=== PATIENT | male | born 1995 | race Caucasian/White ===

== ENCOUNTER 2023-05-31 07:33 | Emergency (ER) | payer OTHER, SELFPAY ==
[2023-05-31 07:34] VITALS: BP 117/73; PULSE 96; RESP 14; TEMP 36.2; O2SAT 95; BMI 30.8
--- NOTE | 2023-05-31 07:53 | RAD_ITS ---
STUDY: X-RAY CHEST REASON FOR EXAM: Male, 27 years old. Cough/cp/sob TECHNIQUE: PA and lateral views of the chest. COMPARISON: None. FINDINGS: The lungs are clear and expanded. There is no demonstrated pleural abnormality. Normal size heart. Normal mediastinum and luis alberto. Normal visualized pulmonary arteries. Normal visualized aortic arch and descending thoracic aorta. Normal visualized thoracic spine. Normal visualized ribs, clavicles, and shoulders. There is no demonstrated abnormality of the visualized soft tissue structures of the upper abdomen. RAD/Chest PA and Lateral IMPRESSION: Normal x-ray examination of the chest. Electronically Signed: Efe Xavier MD at 8:24 EDT ,
--- NOTE | 2023-05-31 07:54 | EX.ED.DYSGE1 ---
HPI History of Present Illness Chief Complaint: General Illness Informant: patient Narrative Narrative: Patient has had about 4 days of illness, multiple family members at home all sick for the same period of time. Most of them are coughing more than him, they seem to be getting a little better but no worse. For the last day or 2 he has had some mild chest tightness and shortness of breath. Not sure if it feels like wheezing. Does not have a history of asthma that he knows of. He is not coughing much, it is more malaise, he had some fevers couple nights ago but not today, and a sore throat at the beginning but that is better now. PFSH PFSH Medical History no medical history no medical history Home Medications albuterol sulfate 90 mcg/actuation aerosol inhaler (Ventolin HFA) 1 - 2 puff inhalation Q4H PRN PRN Wheezing ##1 05/31/23 [Rx Last Taken Unknown] Allergy/AdvReac Type Severity Reaction Status Date / Time No Known Allergies Allergy Verified 05/31/23 07:35 Social History Smoking Status: Never smoker ROS [facility] ED Constitutional Constitutional ED: Reports chills, fever(s) and malaise Eyes Eyes: Denies blurry vision or diplopia ENT ENT ED: Reports sore throat; Denies ear pain, nasal congestion or rhinorrhea Cardiovascular Cardiovascular: Reports chest pain; Denies palpitations Respiratory/Chest Respiratory/Chest: Reports cough and dyspnea; Denies sputum Gastrointestinal Gastrointestinal: Reports nausea; Denies abdominal pain, diarrhea or vomiting Genitourinary Genitourinary ED: Denies dysuria or hematuria Musculoskeletal Musculoskeletal: Denies myalgias or neck pain Integumentary Denies abscess or rash Neurologic Neurologic: Denies headache(s), paresthesias or weakness Psychiatric Psychiatric: Denies depression or suicidal thoughts Endocrine Endocrinology: Denies polydipsia or polyuria EXAM Physical Exam Const Vital Signs: 05/31/23 07:34 05/31/23 07:59 05/31/23 08:05 Temperature 97.2 F L Temperature Source Temporal Pulse Rate 96 78 Respiratory Rate 14 16 Respiratory Pattern Normal Normal Blood Pressure 117/73 Blood Pressure Mean 87 Pulse Ox 95 Oxygen Delivery Method Room Air Positive well nourished and well developed General Appearance ED: well developed and NAD HEENT Reports TM's clear and moist mucous membranes HEENT Narrative: POP clear normocephalic and atraumatic Tympanic Membrane ED: Yes TM's clear Throat: Negative for posterior oropharynx abnormal Eyes PERRL and EOMs intact bilaterally Neck no lymphadenopathy, supple and no meningeal signs Chest Wall inspection of chest normal and palpation of chest normal Resp normal respiratory effort and clear to auscultation bilaterally Cardio no murmurs Rate: regular rate; Negative for tachycardic Rhythm: regular rhythm GI normal to inspection, nondistended, normoactive bowel sounds and non-tender Extremity normal to inspection General Extremety ED: Negative for edema General Extremity: Negative for edema Neuro oriented x3, CN's II-XII intact bilaterally and no sensory deficits noted Sensorium / Orientation: alert Motor Exam: strength 5/5 throughout Skin Lesions: no lesions Rashes: no rashes MDM MDM MDM Narrative Medical decision making narrative: Patient was given albuterol aerosol which helped significantly and his dyspnea and chest tightness resolved. Two-view chest x-ray my interpretation negative for any pneumonia, radiology in agreement chest x-ray is normal. Patient reassured, likely viral syndrome given that his whole family is ill at the same time, and differential here includes mild intermittent asthma that he did not know about, or wheezy bronchitis. Will prescribe an inhaler to use but he cares more about a work note which is also given. Radiography Diagnostic Testing: Clinical Impression(s) from Imaging Studies Chest X-Ray 05/31/23 07:53 IMPRESSION: Normal x-ray examination of the chest. Electronically Signed: Efe Xavier MD at 8:24 EDT Reading Location ID and State: [facility] / [place] , Service support , Discharge Plan Triage Chief Complaint: General Illness ED Provider: Tonio Munoz Dx/Rx/DC Orders Clinical Impression: Chest tightness, Viral URI Instructions: ED Chest Pain, Noncardiac, ED URI, Viral, No Abx (Adult) Prescriptions: New albuterol sulfate [Ventolin HFA] 90 mcg/actuation HFA aerosol inhaler 1 - 2 puff inhalation Q4H PRN PRN (Reason: Wheezing) Qty: 1 0RF Stand Alone Forms: ED Work / School Excuse Primary Care Provider: Care Physician,No Primary Referrals: Josh Miranda MD [Non-Staff] - 1 Week if not improving Disposition Disposition: Home, Self Care
[2023-05-31] MEDS: Albuterol 2.5 MG/3 ML VIAL.NEB. INHALATION (08:03)
[2023-05-31 08:05] VITALS: PULSE 78; RESP 16
== END 2023-05-31 09:13 | disposition home or self-care (01) ==
PROVIDERS: Emergency Provider Emergency Medicine; Visit Provider Emergency Medicine
DX: J06.9 Acute upper respiratory infection, unspecified (principal); R07.89 Other chest pain
CPT/HCPCS: 71046; 94640; 99282